=== PATIENT | female | born 1950 | race Hispanic/Latino ===

== ENCOUNTER → 2019-07-09 | Outpatient (CLI) | payer OTHER | END | disposition home or self-care (01) | LOC: SHCH 12:52 | PROVIDERS: ATTEND Internal Medicine Cardiovascular Disease | DX: I11.9 Hypertensive heart disease without heart failure (principal); R06.09 Other forms of dyspnea | CPT/HCPCS: 93306 ==

== ENCOUNTER → 2019-07-12 | Outpatient (CLI) | payer OTHER ==
[~2019-07-12] VITALS: Ht 160 cm; Wt 70.8 kg
[~2019-07-12] MED LIST: REGADENOSON 0.4 MG/5 ML PF SYG IVP SCH
== END | disposition home or self-care (01) ==
LOC: SHCH 07:44
PROVIDERS: ATTEND Internal Medicine Cardiovascular Disease
DX: I25.89 Other forms of chronic ischemic heart disease (principal); R06.09 Other forms of dyspnea
CPT/HCPCS: 78452; 93017; 96374; A9500 ×2

== ENCOUNTER 2019-10-15 05:57 | Day surgery (SDC) | payer OTHER ==
[2019-10-12 09:48] LABS: BASOPHILS % (AUTO) 0.4 % (0.0-5.0); EOSINOPHILS % (AUTO) 1.4 % (0.0-8.0); HEMATOCRIT 36.4 % (36-48); LYMPHOCYTES % (AUTO) 32.7 % (21.0-51.0); MEAN CORPUSCULAR HEMOGLOBIN 27.1 pg (27.0-33.0); MEAN CORPUSCULAR HGB CONC 31.9 g/dL (32.0-36.0); MONOCYTES % (AUTO) 6.8 % (3.0-13.0); NEUTROPHILS % (AUTO) 58.3 % (40.0-77.0); PLATELET COUNT (AUTO) 248 K/uL (130-400); RED BLOOD CELL COUNT(AUTO) 4.28 MIL/uL (4.00-5.50); RED CELL DISTRIBUTION WIDTH 14.3 % (11.0-15.5); WHITE BLOOD COUNT (AUTO) 4.9 K/uL (4.8-10.8)
[2019-10-12 09:54] LABS: CREATININE 1.3 mg/dL (0.5-1.5); POTASSIUM 4.4 mmol/L (3.5-5.1)
[2019-10-12 09:54] LABS: APPEARANCE,URINE Clear (CLEAR); BILIRUBIN,URINE Negative (NEGATIVE); COLOR,URINE Yellow (YELLOW); GLUCOSE, URINE (UA) Negative (NEGATIVE); KETONES,URINE Negative (NEGATIVE); LEUKOCYTE ESTERASE ,URINE Moderate (NEGATIVE); NITRATE,URINE Positive (NEGATIVE); OCCULT BLOOD,URINE Negative (NEGATIVE); PROTEIN,URINE POS 2+ mg/dL (NEGATIVE); UROBILINOGEN,URINE 0.2 mg/dL (0.2-1.0)
[2019-10-12 09:56] LABS: INR 1.02 (0.85-1.15); PROTHROMBIN TIME 10.7 SEC (9.6-11.6)
[2019-10-12 10:12] VITALS: BP 184/88
[2019-10-12 10:20] LABS: BACTERIA,URINE Many /HPF (None Seen); SQUAMOUS EPITHELIAL CELL,UR Rare /HPF (0-2)
--- NOTE | 2019-10-14 14:13 | NUR ---
CALLED TO REPORT URINE WITH POSITIVE NITRATES AND WBC 11-25, RBC 2-5 AND MODERATE LEUKEST, NEW ORDER TO ADM 1 GM OF ROCEPHIN IV DAY OF PROCEDURE.
[2019-10-15] VITALS (11 sets, daily range): BP systolic 140–160; BP diastolic 48–73
[~2019-10-15] VITALS: Ht 160 cm; Wt 69.1 kg
[~2019-10-15 05:57] MED LIST changes: +AMLO10TA7 PO; +FURO20TA4 PO; +GLIP10TA9 PO; +ISOS30TA6 PO; +LEVO50TA11 PO; +LOSA50TA64 PO; +METF-446 PO; +METO100T14 PO; +PIOG45TA64 PO; +PRAV20TA4 PO; -REGADENOSON 0.4 MG/5 ML PF SYG IVP SCH; +SODIUM CHLORIDE 0.9% 500ML 500 ML IV SCH; +VITAMIN D2 PO
[2019-10-15] MEDS ORDERED: CEFTRIAXONE SODIUM 1 GM IV SCH (06:00)
[2019-10-15] MEDS ORDERED: SODIUM CHLORIDE 0.9% 1000ML 1,000 ML IV ONE (06:11)
--- NOTE | 2019-10-15 06:20 | NUR ---
PRE OP PT ARRIVED AMBULATORY WITH DAUGHTER AT SIDE. PT HERE FOR [facility] IN NO DISTRESS. PT MADE COMFORTABLE IN BED. CALL LIGHT WITH IN REACH, BED IN LOWEST POSITION AND RAILS UP X2. PT CONNECTED TO LANDCARE OFFICER. PT INSTRUCTED TO CALL FOR ASSISTANCE AND VOICED UNDERSTANDING
[2019-10-15] MEDS ORDERED: IOHEXOL-350 75 ML VIAL IV ONE (07:15)
[2019-10-15] MEDS ORDERED: IOHEXOL 350 MG/ML 100ML INFUS..BTL IV ONE (07:15)
[2019-10-15] MEDS ORDERED: BIVALIRUDIN 250 MG/VIAL IV ONE (07:15)
[2019-10-15] MEDS ORDERED: NITROGLYCERIN 2 MG/VIAL VIAL IV ONE (07:15)
[2019-10-15] MEDS ORDERED: MIDAZOLAM HCL 1 MG/ML 2ML VIAL ONE (07:16)
[2019-10-15] MEDS ORDERED: LIDOCAINE HCL 2% 20ML ONE (07:16)
[2019-10-15] MEDS ORDERED: FENTANYL CITRATE PF 50 MCG/1 ML 2ML VIAL ONE (07:16)
--- NOTE | 2019-10-15 07:18 | NUR ---
SLAG PRODUCTION WORKER PT TAKEN TO SLAG PRODUCTION WORKER BY SLAG PRODUCTION WORKER NURSE VIA BED. PT IN NO DISTRESS.
[2019-10-15] MEDS ORDERED: SODIUM CHLORIDE 0.9% 1000ML 1,000 ML IV SCH (08:24)
[2019-10-15] MEDS ORDERED: ASPIRIN 81MG TAB.CHEW ONE (08:25)
[2019-10-15] MEDS ORDERED: TICAGRELOR 90 MG TABLET ONE (08:25)
[2019-10-15] MEDS ORDERED: GLUCAGON 1MG KIT 1 MG ML IM PRN (08:30)
[2019-10-15] MEDS ORDERED: NITROGLYCERIN 0.4 MG SL TAB SL PRN (08:30)
[2019-10-15] MEDS ORDERED: METOPROLOL TARTRATE 1 MG/ML 5ML VIAL IV PRN (08:30)
[2019-10-15] MEDS ORDERED: ACETAMINOPHEN-CODEINE 300/30MG TAB PO PRN (08:30)
[2019-10-15] MEDS ORDERED: DEXTROSE 50%-WATER 50 ML DISP.SYRIN IV PRN (08:30)
--- NOTE | 2019-10-15 08:35 | NUR ---
REPORT RECEIVED CALL FROM MANUEL MART RN. [facility] DONE AND STENT PLACED BUT PT OK TO GO HOME.
--- NOTE | 2019-10-15 08:50 | NUR ---
ROUNDS DR MURPHY IN TO SEE PT AND FAMILY. PT AND FAMILY INFORMED ON PLAN PER . PT WILL BE STARTING TWO NEW MEDS AND F/U AT OFFICE. PT AND FAMILY VOICED UNDERSTANDING
--- NOTE | 2019-10-15 08:55 | NUR ---
POST CATH RECEIVED PT BACK FROM PHYSICIAN CREDENTIALING SPECIALIST. MANUEL MART RN ENDORSED REPORT. RT GROIN WITH MYNX DEVICE FREE FROM S/S OF BLEEDING. DAUGHTER AT BEDSIDE. PT INSTRUCTED TO CALL IF ANY BLEEDING OR CHANGE IN CONDITION. PT VOICED UNDERSTANDING
--- NOTE | 2019-10-15 10:15 | NUR ---
ACTIVITY PT HOB RAISED. NO S/S OF BLEEDING NOTED TO RT GROIN. WILL CONT TO MONITOR PT. DIET SERVED.
--- NOTE | 2019-10-15 10:25 | NUR ---
insulin adm pts bs 210mg/dl. adm regular insulin 3 units to left outer arm. pt tolerated it well
[2019-10-15] MEDS ORDERED: INSULIN HUMULIN R 100 UNIT/ML 3ML SQ SCH (11:30)
--- NOTE | 2019-10-15 11:35 | NUR ---
ASSESSMENT PT READING A BOOK IN NO DISTRESS. NO CHANGE IN PATIENT STATUS.
--- NOTE | 2019-10-15 15:35 | NUR ---
report called michelle yip for dr bueno to verify frequency for aspirin. as per michelle instruct pt to take daily. report given to yonatan gandhi on pt care and medication change.
--- NOTE | 2019-10-15 15:40 | NUR ---
PHARMACY CALLED [facility] AT [phone]. CALLED IN PRESCRIPTION FOR ASPIRIN 81 MG DAILY #90 AND BRILINTA 90MG I TAB PO TWICE A DAY #180. PT AND PTS DAUGHTER VERBALIZED UNDERSTANDING. WILL SHOWER ENCLOSURE INSTALLER PRESCRIPTION.
== END 2019-10-15 16:10 | disposition home or self-care (01) ==
LOC: DAH 05:57
PROVIDERS: ATTEND Internal Medicine Cardiovascular Disease
DX: I25.119 Atherosclerotic heart disease of native coronary artery with unspecified angina pectoris (principal); I10 Essential (primary) hypertension; E78.5 Hyperlipidemia, unspecified; E11.9 Type 2 diabetes mellitus without complications; I45.10 Unspecified right bundle-branch block; Z90.49 Acquired absence of other specified parts of digestive tract; Z98.890 Other specified postprocedural states; Z79.01 Long term (current) use of anticoagulants; Z79.84 Long term (current) use of oral hypoglycemic drugs; Z79.899 Other long term (current) drug therapy
CPT/HCPCS: 36415; 71045; 80048; 81001; 82948 ×2; 85025; 85610; 85730; 87077; 87088; 87186; 93005; 93458; A4215; A4216; A4221; A4222; A4223 ×3; A4606; A4663; C1760; C1769; C1874; C1887; C1894 ×2; C9600; J0583; J0696; J1644; J1815; J2250; J3010; J3490 ×2; J7030; Q9965; Q9967 ×2; 99156; 99157

== ENCOUNTER → 2020-10-13 | Outpatient (CLI) | payer OTHER ==
[~2020-10-13] MED LIST changes: +AMLO-258 PO; -AMLO10TA7 PO; -ISOS30TA6 PO; +ISOS30TA92 PO; -SODIUM CHLORIDE 0.9% 500ML 500 ML IV SCH
== END | disposition home or self-care (01) ==
LOC: SHCH 13:31
PROVIDERS: ATTEND Internal Medicine Cardiovascular Disease
DX: I87.2 Venous insufficiency (chronic) (peripheral) (principal)
CPT/HCPCS: 93970

== ENCOUNTER → 2023-02-21 | Outpatient (CLI) | payer OTHER ==
[~2023-02-21] MED LIST changes: +REGADENOSON 0.4 MG/5 ML PF SYG IVP ONE
== END | disposition home or self-care (01) ==
LOC: SHCH 08:14
PROVIDERS: ATTEND Internal Medicine Cardiovascular Disease
DX: I20.9 Angina pectoris, unspecified (principal); I45.10 Unspecified right bundle-branch block
CPT/HCPCS: 78452; 96374; 93017; J2785; A9500 ×2

== ENCOUNTER 2025-06-17 01:30 | Observation (INO) | payer OTHER ==
[~2025-06-17] VITALS: Ht 154.9 cm; Wt 59.2 kg
[~2025-06-17 01:30] MED LIST changes: +GLIP10TA16 PO; -GLIP10TA9 PO; -PRAV20TA4 PO; +PRAV20TA59 PO; -REGADENOSON 0.4 MG/5 ML PF SYG IVP ONE
--- NOTE | 2025-06-17 01:40 | ERN ---
ED Note History of Present Illness Stated Complaint: LEFT SIDED NUMBNESS, CP Chief Complaint: Multiple Complaints Time Seen by MD: 01:39 Dictation: 75-year-old female with a history of hypertension diabetes coming in with complaints waking up at 11:00 p.m. with the tingling sensation to the left side of the body. Also states woke up with left-sided chest pressure. Denies any weakness, slurred speech, dysphagia. Allergies: Coded Allergies: No Known Drug Allergies (Verified Allergy, Unknown, 10/12/19) Home Meds Reported Medications Pravastatin Sodium (Pravastatin Sodium) 20 Mg Tablet, 20 MG PO HS, TAB 10/12/19 Pioglitazone HCl (Pioglitazone HCl) 45 Mg Tablet, 45 MG PO DAILY, TAB 10/12/19 [Vitamin D2] No Conflict Check, 14319 PO QWEEK 10/12/19 Metformin HCl (Metformin HCl) 1,000 Mg Tablet, 1000 MG PO BID, TAB 10/12/19 Glipizide (Glipizide) 10 Mg Tablet, 20 MG PO BID, TAB 10/12/19 Furosemide (Furosemide) 20 Mg Tablet, 20 MG PO DAILY, TAB 10/12/19 Isosorbide Mononitrate (Isosorbide Mononitrate ER) 30 Mg Tab.er.24h, 30 MG PO DAILY, TAB 10/12/19 Amlodipine Besylate (Amlodipine Besylate) 10 Mg Tablet, 10 MG PO DAILY, TAB 10/12/19 Losartan Potassium (Losartan Potassium) 50 Mg Tablet, 50 MG PO BIDAC, TAB 10/12/19 Metoprolol Tartrate (Metoprolol Tartrate) 100 Mg Tablet, 100 MG PO BID, TAB 10/12/19 Levothyroxine Sodium (Levothyroxine Sodium) 50 Mcg Tablet, 50 MCG PO DAILY, TAB 10/12/19 Review of System Dictation Chest pain and arm numbness Initial Vital Sign VS Vital Signs Date Time Temp Pulse Resp B/P (MAP) Pulse Ox O2 Delivery O2 Flow Rate FiO2 06/17/25 01:31 97.5 71 18 210/61 98 Room Air 06/17/25 01:55 0 21 Physical Exam Dictation HEENT: PERRLA CVS: S1 S2 heard Lung: Clear B?L Abd: Soft, nontender, nondistended, active bowel sounds Extremity: B/L upper and lower extremity pulses along with sensation in upper and lower extremity intact Neuro: Cranial nerves intact, normal speech, 5/5 strength in upper and lower extremity, 2 + reflexes upper and lower extremity, NIH score 0 and GCS 15, no cerebellar sign Results (Laboratory/Radiology) Laboratory/Radiology Laboratory Tests Test 06/17/25 01:46 White Blood Count 6.4 K/uL (4.8-10.8) Red Blood Count 4.18 MIL/uL (4.00-5.50) Hemoglobin 11.5 g/dL (12.0-16.0) L Hematocrit 35.9 % (36-48) L Mean Corpuscular Volume 85.9 fL (79-99) Mean Corpuscular Hemoglobin 27.5 pg (27.0-33.0) Mean Corpuscular Hemoglobin Concent 32.0 g/dL (32.0-36.0) Red Cell Distribution Width 13.6 % (11.0-15.5) Platelet Count 238 K/uL (130-400) Mean Platelet Volume 10.3 fL (7.5-10.5) Immature Granulocyte % (Auto) 0.0 % (0-1) Neutrophils (%) (Auto) 34.6 % (40.0-77.0) L Lymphocytes (%) (Auto) 49.6 % (21.0-51.0) Monocytes (%) (Auto) 9.0 % (3.0-13.0) Eosinophils (%) (Auto) 6.3 % (0.0-8.0) Basophils (%) (Auto) 0.5 % (0.0-5.0) Neutrophils # (Auto) 2.2 K/uL (1.8-7.7) Lymphocytes # (Auto) 3.2 K/uL (1.0-4.8) Monocytes # (Auto) 0.6 K/uL (0.1-1.0) Eosinophils # (Auto) 0.40 K/uL (0.00-0.70) Basophils # (Auto) 0.03 K/uL (0.00-0.20) Absolute Immature Granulocyte (auto 0.00 K/uL (0-1) Nucleated Red Blood Cells 0.0 % (0.0-0.19) Sodium Level 141 mmol/L (136-145) Potassium Level 3.3 mmol/L (3.5-5.1) L Chloride Level 106 mmol/L (101-111) Carbon Dioxide Level 25 mmol/L (21-32) Blood Urea Nitrogen 23 mg/dL (7-18) H Creatinine 1.3 mg/dL (0.5-1.0) H Glomerular Filtration Rate Calc 42 mL/min (>90) Random Glucose 83 mg/dL (70-105) Total Calcium 9.1 mg/dL (8.5-10.1) Total Creatine Kinase 166 U/L (21-232) Troponin I High Sensitivity 18 ng/L (4-50) ED Course ED Course Orders Procedure Category Date Status Time Vital Signs Per CPOE 06/17/25 Transmitted Routine 01:34 Chest 1vw RAD 06/17/25 Resulted 01:34 12 Lead Ekg Tracing- EKG 06/17/25 Complete Technical 01:34 Oxygen By Nc/Pulse Ox CPOE 06/17/25 Transmitted 01:34 Maintain Iv CPOE 06/17/25 Transmitted 01:34 Iv Insertion CPOE 06/17/25 Transmitted 01:34 Cardiac Monitoring CPOE 06/17/25 Transmitted 01:34 Pulse Oximetry With CPOE 06/17/25 Transmitted Vs And Prn 01:34 Cbc With Differential LAB 06/17/25 Complete 01:34 Activity: Br W/Brp CPOE 06/17/25 Transmitted With Assist 01:34 Creatine Kinase, Total LAB 06/17/25 Complete 01:34 Troponin I High LAB 06/17/25 Complete Sensitivity 01:34 Urinalysis Profile LAB 06/17/25 Logged 01:34 Basic Metabolic Panel LAB 06/17/25 Complete 01:34 Ct Head/Brain W/O CT 06/17/25 Taken Contrast 01:38 Hydralazine 20mg Inj PHA 06/17/25 Complete (Apresoline 20mg In 02:00 Current Medications Medications (Trade) Dose Ordered Sig/Omar Route PRN Reason Start Time Stop Time Status Last Admin Dose Admin Hydralazine HCl (APRESOLine 20MG INJ) 10 mg ONCE ONCE IV 06/17/25 02:00 06/17/25 02:01 DC 06/17/25 02:02 Vital Signs Date Time Temp Pulse Resp B/P (MAP) Pulse Ox O2 Delivery O2 Flow Rate FiO2 06/17/25 02:21 67 18 174/57 100 Room Air* 0 21 10/31/25 02:02 80 202/69 31/25 01:55 97.5 80 16 100 Room Air* 0 21 06/17/25 01:31 97.5 71 18 210/61 98 Room Air Medical Decision Making MDM Pt will be admitted to hospitalist service for further management. Stroke Patient?: No Is Patient Candidate for t-PA?: No Did the Patient Receive t-PA?: No NIH STROKE SCALE: NIH STROKE SCALE Response (Comments) Value Level of Consciousness Alert 0 Ask patient month and their age Answers both correct 0 Command to open eyes, make fist and let go Obeys both correct 0 Best gaze (horizontal eye movement) Normal 0 Visual Field Testing No Visual Field Loss 0 Facial Paresis Normal / Symmetrical 0 Motor Function - Left Arm Normal 0 Motor Function - Right Arm Normal 0 Motor Function - Left Leg Normal 0 Motor Function - Right Leg Normal 0 Limb Ataxia No Ataxia 0 Sensory-pin prick to arms, legs, trunk and face Normal 0 Best Language (describe picture, name items and read) No Aphasia 0 Dysarthria (read several words) Normal Articulation 0 Extinction and Inattention Normal 0 Total 0 Neuro Comment: NIH scale 0 DX & DISP Disposition: Inpatient Departure Impression: Primary Impression: Hypertensive urgency Condition: Stable Referrals: RC CALI MD (PCP) SLIM HOSKINS CNP Jun 17, 2025 01:40 CURLY EDGAR MD Jun 17, 2025 02:57
--- NOTE | 2025-06-17 01:42 | EKG ---
[facility] Test Date: 2025-06-17 Test Time: 01:34:45 Pat Name: ANDREWS BECK Department: ED Room: 409 Gender: F Geographic Area Intelligence Officer: [id number] : 1950 Requested By: CURLY EDGAR Order Number: [id number] Reading MD: Kevon Norris Measurements Intervals [place] Rate: 67 P: 2 IA: 178 QRS: 68 QRSD: 147 T: 29 QT: 452 QTc: 478 Interpretive Statements Sinus rhythm Right bundle branch block Compared to ECG 10/12/2019 09:30:36 No significant changes Electronically Signed On 06-17-2025 12:22:36 CDT by Kevon Norris Please click the below link to view image of tracing.
--- NOTE | 2025-06-17 01:50 | NUR ---
patient at ct scan at this time.
[2025-06-17 01:53] LABS: IMMATURE GRANULOCYTE ABSOLUTE 0.00 K/uL (0-1); NUCLEATED RED BLOOD CELLS 0.0 % (0.0-0.19); PLATELET COUNT (AUTO) 238 K/uL (130-400); RED BLOOD CELL COUNT(AUTO) 4.18 MIL/uL (4.00-5.50); RED CELL DISTRIBUTION WIDTH 13.6 % (11.0-15.5); WHITE BLOOD COUNT (AUTO) 6.4 K/uL (4.8-10.8)
[2025-06-17 02:01] LABS: CREATININE 1.3 mg/dL (0.5-1.0); GLOMERULAR FILTR. RATE CALC 42.0 mL/min (>90); GLUCOSE,RANDOM 83.0 mg/dL (70-105); SODIUM SERUM 141.0 mmol/L (136-145); UREA NITROGEN, BLOOD 23.0 mg/dL (7-18)
[2025-06-17 02:06] LABS: CREATINE KINASE, TOTAL 166.0 U/L (21-232)
--- NOTE | 2025-06-17 02:33 | HMCIMG ---
EXAM: CR Chest, 1 view CLINICAL HISTORY: Chest pain. COMPARISON: None provided. FINDINGS: The lungs show no infiltrates or other acute findings. No pleural effusion or pneumothorax. The cardiomediastinal silhouette is within normal limits. No acute osseous abnormality. IMPRESSION: No acute cardiopulmonary process is evident. /[place]
--- NOTE | 2025-06-17 02:50 | HMCIMG ---
EXAM: Non-contrast CT examination of the Brain. CLINICAL HISTORY: Numbness. TECHNIQUE: Thin collimated axial CT images of the brain were obtained, with sagittal and coronal reformatted images also submitted. A CT scan was done according to ALARA (As low as reasonably achievable). CONTRAST USED: None. COMPARISON: None provided. FINDINGS: No acute intracranial abnormality is present. Mild small vessel chronic ischemic changes in the bilateral cerebral white matter. No acute cortical infarction, hemorrhage, mass, or mass effect. There is mild prominence of the ventricles, cisterns, and sulci. No hydrocephalus or abnormal extra-axial fluid collections. The posterior fossa is unremarkable. The skull base and calvarium are intact. The included portions of the paranasal sinuses and mastoid air cells are clear. IMPRESSION: No acute intracranial abnormality is present. Mild small vessel chronic ischemic changes in the bilateral cerebral white matter. Age-related cerebral atrophy. /[place]
[2025-06-17 03:11] LABS: APPEARANCE,URINE CLEAR (CLEAR); GLUCOSE, URINE (UA) 500 mg/dL (NEGATIVE); LEUKOCYTE ESTERASE ,URINE NEGATIVE Leu/uL (NEGATIVE); NITRATE,URINE NEGATIVE (NEGATIVE); OCCULT BLOOD,URINE NEGATIVE (NEGATIVE); SQUAMOUS EPITHELIAL CELL,UR RARE /HPF (0-2)
[2025-06-17] MEDS ORDERED: HYDROcodone/APAP 5/325 1 TAB TABLET PO PRN ×3 (04:00→13:30)
[2025-06-17] MEDS ORDERED: PoTASSium chl 10% ELIXIR 20MEQ 20 MEQ/15 ML UDCUP PO PRN (04:00)
[2025-06-17] MEDS ORDERED: ALBUTEROL 0.083% 2.5 MG/3 ML INH IH PRN (04:00)
[2025-06-17] MEDS: PoTASSium chloRIDE 20MEQ ER 20 MEQ ERTAB PO PRN (04:19)
[2025-06-17 04:45] VITALS: O2SAT 100
--- NOTE | 2025-06-17 05:20 | NUR ---
home meds asked baljit lin for patient's home meds. she will bring them today
[2025-06-17 08:07] VITALS: BP 157/56; PULSE 77; RESP 18; TEMP 97.8
[2025-06-17] MEDS: FAMOTIDINE 20MG TAB PO SCH (10:25)
[2025-06-17 11:32] VITALS: BP 145/62; PULSE 80; RESP 20; TEMP 98.1
--- NOTE | 2025-06-17 12:19 | HMCSR ---
APPROVED REPORT EXAM: Two-dimensional and M-mode echocardiogram with Doppler and color Doppler. INDICATION ICD: Chest Pressure 2D Dimensions RVDd3.7 cmLVEF(%)65.9 (>50%)LVED Vol(simp.)76.0 mL IVSd1.6 (0.7-1.1cm)FS(%)36 %LVES Vol(simp.)26.0 mL LVDd3.9 (3.8-5.6cm)LA (2D)4.1 (1.6-4.0cm)LVEF(%, simp.)66 % PWd1.4 (0.7-1.1cm)Ao Root(2D)3.0 (2.0-3.7cm)LA ESV INDEX (BP)39.72 mL/m2 IVSs1.7 cmLVOT diam1.9 (1.8-2.4cm) LVDs2.5 (2.5-4.0cm)IVC diam1.3 cm PWs1.7 cm Deformation Strain Apical 4-22.2 % Apical 2-25.1 % Apical 3-19.5 % Global Strain-22.3 % M-Mode Dimensions EPSS0.6 cm LA (MM)4.6 (1.6-4.0cm) Ao Root(MM)2.9 (2.0-3.7cm) Aortic Valve AoV Vmax1.7 m/Hina Peak GR12.2 mmHgLVOT Vmax1.2 m/s AoV VTI0.3 mAo Mean GR5.8 mmHgLVOT VTI0.29 m LORENZO (VMAX)1.97 cm2AVA (VTI) 2.5 cm2 Mitral Valve MV E Vmax92.8 cm/sDECEL Dptr987 ms MV A Jgdq008.0 cm/sP 1/2 T38 ms E/A ratio0.8MVA (PHT)5.8 cm2 TDI E/E' Dmldpb73.0E/E' Gtkipza60.3 Medial E' Peak V6.18 cm/sLateral E' Peak V6.07 cm/s Pulmonary Valve PV Vmax1.1 m/sPV Mean GR2.6 mmHg PV Peak GR4.8 mmHg Tricuspid Valve TR Vmax3.1 m/sRAP (EST) 3 tnXjRCEZ31.3 mmHg TR Peak GR38.3 mmHg Left Ventricle The left ventricle is normal size. GLS -22.0% Moderate to severe concentric left ventricular hypertro phy. LVEF is 65-70%. Stage II, diastolic dysfunction. Right Ventricle The right ventricle is normal size. The right ventricular systolic function is normal. Atria The left atrium size is normal. The right atrium size is normal. Aortic Valve Aortic valve is trileaflet and opens well. No aortic regurgitation is present. There is no aortic deana vular stenosis. 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 Mitral valve leaflets open well. There is trace of mitral va lve regurgitation noted. There is no mitral valve stenosis. Tricuspid Valve The tricuspid valve is normal in structure. There is mild tricuspid valve regurgitation noted. Pulmonic Valve The pulmonary valve is normal in structure. There is no pulmonic valvular regurgitation. Great Vessels The aortic root is normal in size. The IVC is normal in size and collapses >50% with inspiration. Pericardium Prominent anterior epicardial fat pad is present. Other Information Quality : Fair Conclusion Moderate to severe concentric left ventricular hypertrophy. LVEF is 65-70%. Stage II, diastolic dysfunction. GLS -22.0% There is trace of mitral valve regurgitation noted.
--- NOTE | 2025-06-17 12:21 | HP ---
[facility] HISTORY & PHYSICAL Date Patient Seen: Jun 17, 2025 Time of Visit: 12:21 Supervising Physician: Dr. Juan Daniel Lara Primary Care Physician: Dr. Rossana Mar Inpatient Consults: NA PROBLEM LIST: Left arm/leg tingling/numbness Hypertensive urgency on admission (210/61) Acute kidney injury Diabetes mellitus type 2 Hyperlipidemia Hypothyroidism HPI: 75-year old female with past medical history of DM type 2, HTN, hypothyroidism that presented to the ER due to left sided arm and leg tingling/numbness that lasted about 2 hours, started at 2300 and she arrived to the ER at 0100. States two weeks ago she had the same symptoms that lasted about an hour and then they resolved. On arrival to the ER, CT head showed mild small vessel chronic ischemic changes in the bilateral cerebral white matter. Blood pressure was noted to be at 210/61. Patient states that when she started with numbness, she checked her blood pressure and it was in the 150's. EKG shows SR 60's. Troponin 18. Upon assessment, patient is AAOX3. Currently on room air. Able to voice needs and follow commands. Denies anymore tingling or numbness. Will order MRI brain, MRA head/neck to evaluate for stroke. Echo ordered as well. Daughter at bedside. Patient admitted for further workup. Goals of care explained to patient and daughter. Plan: MRI brain, MRA/MRA neck/head Echo Aspirin and statin Resume home medications, permissive hypertension AM labs Fall precautions PAST MEDICAL HX: see above PAST SURGICAL HX: noncontributory SOCIAL HISTORY: No tobacco, ETOH, or illicit drug use Coded Allergies: No Known Drug Allergies (Verified Allergy, Unknown, 10/12/19) REVIEW OF SYSTEMS: 12 point ROS reviewed with patient. Pertinent positives mentioned above. Otherwise negative. PHYSICAL EXAM: GENERAL: alert, weak, awake oriented x 3 HEENT: EOMI, Sclera non icteric, moist mucosa NECK: Supple, no JVD, trachea midline LUNGS: Clear breath sounds bilaterally. No wheezes HEART: Regular rate and rhythm. Normal S1 and S2, without murmurs ABD: Abdomen soft, nontender. Bowel sounds present EXT: No clubbing cyanosis or edema NEURO: AAOX3, follows commands Vital Signs (last 8hr) Date Time Temp Pulse Resp B/P (MAP) Pulse Ox O2 Delivery O2 Flow Rate FiO2 06/17/25 11:32 98.1 80 20 145/62 98 Room Air 06/17/25 08:07 97.9 77 18 157/56 100 Room Air 06/17/25 04:45 100 Room Air* 0 21 LABS: Hematology Labs: Test 06/17/25 01:46 Range/Units White Blood Count 6.4 4.8-10.8 K/uL Red Blood Count 4.18 4.00-5.50 MIL/uL Hemoglobin 11.5 L 12.0-16.0 g/dL Hematocrit 35.9 L 36-48 % Mean Corpuscular Volume 85.9 79-99 fL Mean Corpuscular Hemoglobin 27.5 27.0-33.0 pg Mean Corpuscular Hemoglobin Concent 32.0 32.0-36.0 g/dL Red Cell Distribution Width 13.6 11.0-15.5 % Platelet Count 238 130-400 K/uL Mean Platelet Volume 10.3 7.5-10.5 fL Immature Granulocyte % (Auto) 0.0 0-1 % Neutrophils (%) (Auto) 34.6 L 40.0-77.0 % Lymphocytes (%) (Auto) 49.6 21.0-51.0 % Monocytes (%) (Auto) 9.0 3.0-13.0 % Eosinophils (%) (Auto) 6.3 0.0-8.0 % Basophils (%) (Auto) 0.5 0.0-5.0 % Neutrophils # (Auto) 2.2 1.8-7.7 K/uL Lymphocytes # (Auto) 3.2 1.0-4.8 K/uL Monocytes # (Auto) 0.6 0.1-1.0 K/uL Eosinophils # (Auto) 0.40 0.00-0.70 K/uL Basophils # (Auto) 0.03 0.00-0.20 K/uL Absolute Immature Granulocyte (auto 0.00 0-1 K/uL Nucleated Red Blood Cells 0.0 0.0-0.19 % Chemistry Labs: Test 06/17/25 10:39 06/17/25 08:48 06/17/25 01:46 Range/Units Whole Blood Glucose 206 #H 70-110 MG/DL Troponin I High Sensitivity 20 4-50 ng/L Sodium Level 141 136-145 mmol/L Potassium Level 3.3 L 3.5-5.1 mmol/L Chloride Level 106 101-111 mmol/L Carbon Dioxide Level 25 21-32 mmol/L Blood Urea Nitrogen 23 H 7-18 mg/dL Creatinine 1.3 H 0.5-1.0 mg/dL Glomerular Filtration Rate Calc 42 >90 mL/min Random Glucose 83 70-105 mg/dL Total Calcium 9.1 8.5-10.1 mg/dL Total Creatine Kinase 166 21-232 U/L DIAGNOSTICS / RADIOLOGY RESULTS: PROCEDURE: HEAD WO - CT HEAD/BRAIN W/O CONTRAST EXAM: Non-contrast CT examination of the Brain. CLINICAL HISTORY: Numbness. TECHNIQUE: Thin collimated axial CT images of the brain were obtained, with sagittal and coronal reformatted images also submitted. A CT scan was done according to ALARA (As low as reasonably achievable). CONTRAST USED: None. COMPARISON: None provided. FINDINGS: No acute intracranial abnormality is present. Mild small vessel chronic ischemic changes in the bilateral cerebral white matter. No acute cortical infarction, hemorrhage, mass, or mass effect. There is mild prominence of the ventricles, cisterns, and sulci. No hydrocephalus or abnormal extra-axial fluid collections. The posterior fossa is unremarkable. The skull base and calvarium are intact. The included portions of the paranasal sinuses and mastoid air cells are clear. IMPRESSION: No acute intracranial abnormality is present. Mild small vessel chronic ischemic changes in the bilateral cerebral white matter. Age-related cerebral atrophy. PLAN NEURO: Minimize central acting medications as possible. Maintain fall precautions, adequate lighting during the day Aspirin and statin PULMONARY: Supplemental 02 as needed. Maintain aspiration precautions at all times CARDIOVASCULAR: Follow hemodynamics. Vital signs per facility protocol GI & NUTRITION: Continue with nutritional support. Continue stool softeners and laxatives as needed. KIDNEYS & ELECTROLYTES: Strict monitoring of intake, output and overall fluid balance. Avoid nephrotoxic medications to the extent possible. Medications to be dosed according to renal function. Monitor electrolytes and replace as needed ENDOCRINE: Maintain blood glucose between 100-180 at all times. Hypoglycemia protocol in place INFECTIOUS DISEASE: Trend temperature, WBC and procalcitonin level Follow cultures, deescalate antibiotics as soon as possible. Panculture if new onset fever ONCOLOGY/HEMATOLOGY/COAGULATION: Monitor for s/s of bleeding Monitor hemoglobin, coagulation studies as needed SKIN: Pressure ulcer prevention per facility protocol Specialty mattress ORTHO/REHAB: Continue PT/OT Prophylaxis: Continue GI and DVT prophylaxis Code Status: Full Resuscitation Disposition: TBD SONNY HIGGINBOTHAM Jun 17, 2025 12:21
--- NOTE | 2025-06-17 13:34 | NUR ---
DCP:HOME Pt currently lives with her daughter Perla Thomas [phone]. Pt denies having any DME, home health, or provider services. Pt states that she is able to complete ALDs independently. PCP is Dr. Rossana Mar and uses [facility] for any RX needs. At [place] pt will want to go home and family can assist with transportation. Addendum: 06/17/25 at 1336 by THANH ESPARZA SS Amended: Links added.
[2025-06-17] MEDS: ASPIRIN 325MG EC TAB PO SCH (13:42)
[2025-06-17 16:00] VITALS: BP 143/56; PULSE 86; RESP 19; TEMP 97.9
--- NOTE | 2025-06-17 17:32 | HMCIMG ---
EXAM: MRA Neck without Intravenous Contrast. CLINICAL HISTORY: left side tingling TECHNIQUE: Magnetic resonance angiography images of the neck without intravenous contrast. Three-dimensional MIP reformations performed. Series acquired: 5 - 3D TOF 6 SLAB - TR: 18.0 - TE: 2.7 - ET: 1.0 - Thk: 3.0 500 - COL:3D TOF 6 SLAB - TR: 18.0 - TE: 2.7 - ET: 1.0 - Thk: 3.0 501 - PJN:3D TOF 6 SLAB - TR: 18.0 - TE: 2.7 - ET: 1.0 - Thk: 3.0 502 - ROT - TR: 18.0 - TE: 2.7 - ET: 1.0 - Thk: 3.0 504 - R ROT - TR: 18.0 - TE: 2.7 - ET: 1.0 - Thk: 3.0 505 - L ROT - TR: 18.0 - TE: 2.7 - ET: 1.0 - Thk: 3.0 CONTRAST: COMPARISON: None provided. FINDINGS: INTERNAL CAROTID ARTERIES: No significant stenosis based on NASCET criteria. COMMON CAROTID ARTERIES: No significant stenosis. No dissection. EXTERNAL CAROTID ARTERIES: No occlusion or dissection. VERTEBRAL ARTERIES: No significant stenosis. No dissection. BASILAR ARTERY: No significant stenosis. No dissection. SOFT TISSUES Unremarkable as visualized. IMPRESSION: 1. No acute findings. 2. No significant stenosis or dissection of the carotid, vertebral, or basilar arteries. /[place]
--- NOTE | 2025-06-17 17:33 | HMCIMG ---
EXAM: MRI BRAIN AND BRAINSTEM WITHOUT INTRAVENOUS CONTRAST Technique: Multiplanar magnetic resonance imaging of the brain and brainstem was performed, including T1-, T2-, and FLAIR-weighted sequences with diffusion-weighted imaging and corresponding ADC maps. Contrast: No intravenous contrast was administered. Clinical Information: Left-sided weakness. Findings: Brain parenchyma: Nonspecific foci of increased T2/FLAIR signal in the periventricular and deep subcortical white matter; no associated mass effect. No diffusion restriction to suggest acute infarction. No intracranial hemorrhage or mass. Extra-axial spaces: Normal in size and morphology for age; no extra-axial fluid collection. Ventricular system and basal cisterns: Ventricles are normal in size and configuration; basal cisterns are patent. Posterior fossa/brainstem: Brainstem and cerebellum are unremarkable; no cerebellopontine angle mass. Vascular system: Expected arterial and dural venous sinus flow voids are present. Orbits and paranasal sinuses: Orbits are unremarkable; paranasal sinuses are clear. Osseous structures: Calvarium and skull base show no acute abnormality. Impression:1. No acute intracranial abnormality is identified, including no diffusion restriction to suggest acute infarct, and no intracranial hemorrhage, mass effect, or hydrocephalus. 2. Scattered nonspecific T2/FLAIR white matter hyperintensities, most commonly seen with chronic small vessel ischemic change; correlate with vascular risk factors. /[place]
--- NOTE | 2025-06-17 17:33 | HMCIMG ---
EXAM: MR ANGIOGRAPHY HEAD WITHOUT INTRAVENOUS CONTRAST Technique: Three-dimensional [id number] magnetic resonance angiography of the [place] with multiplanar kccoehl-[id number] reconstructions. Contrast: No intravenous contrast was administered. Clinical Information: Left-sided tingling. Findings: Anterior circulation: Intracranial segments of the right and left internal carotid arteries are patent without significant stenosis; no aneurysm detected. Right and left middle cerebral arteries are patent without occlusion or significant stenosis; no aneurysm. Right and left anterior cerebral arteries are patent without occlusion or significant stenosis; no aneurysm. Posterior circulation: Right and left vertebral arteries are patent without significant stenosis; no aneurysm. Basilar artery is patent without significant stenosis; no aneurysm. Right and left posterior cerebral arteries are patent without occlusion or significant stenosis; no aneurysm. Impression: * Normal intracranial MR angiography???no significant stenosis, occlusion, or aneurysm identified in the major anterior or posterior circulation. /[place]
[2025-06-17 19:11] VITALS: PULSE 86; RESP 19; O2SAT 96
[2025-06-17 20:00] VITALS: BP 147/62; PULSE 69; RESP 17; TEMP 98.1; O2SAT 98
[2025-06-18 00:04] VITALS: BP 150/63; PULSE 80; RESP 17; TEMP 98
[2025-06-18 04:06] VITALS: BP 153/66; PULSE 76; RESP 17; TEMP 98
[2025-06-18 04:10] LABS: IMMATURE GRANULOCYTE ABSOLUTE 0.02 K/uL (0-1); NUCLEATED RED BLOOD CELLS 0.0 % (0.0-0.19); PLATELET COUNT (AUTO) 227 K/uL (130-400); RED BLOOD CELL COUNT(AUTO) 4.07 MIL/uL (4.00-5.50); RED CELL DISTRIBUTION WIDTH 14.0 % (11.0-15.5); WHITE BLOOD COUNT (AUTO) 6.3 K/uL (4.8-10.8)
[2025-06-18 04:34] LABS: ASPARTATE AMINOTRANSFERASE 18.0 U/L (10-37); CREATININE 1.3 mg/dL (0.5-1.0); GLOMERULAR FILTR. RATE CALC 42.0 mL/min (>90); GLUCOSE,RANDOM 58.0 mg/dL (70-105); PHOSPHORUS 3.6 mg/dL (2.5-4.9); SODIUM SERUM 141.0 mmol/L (136-145); TOTAL PROTEIN, SERUM 6.3 g/dL (6.0-8.3); UREA NITROGEN, BLOOD 18.0 mg/dL (7-18)
[2025-06-18 06:12] VITALS: PULSE 71; RESP 18; O2SAT 98
[2025-06-18 08:08] VITALS: BP 168/60; PULSE 78; RESP 18; TEMP 97.8
[2025-06-18] MEDS: amLODIPine 2.5 MG TAB PO SCH (10:45)
[2025-06-18 11:40] VITALS: BP 146/55; PULSE 75; RESP 20; TEMP 98.1
[2025-06-18] MEDS ORDERED: FOLI0.8T22 PO (14:05)
[2025-06-18] MEDS ORDERED: LOSA50TA64 PO (14:06)
[2025-06-18] MEDS ORDERED: METF-444 PO (14:07)
[2025-06-18] MEDS ORDERED: PIOG45TA64 PO (14:12)
[2025-06-18] MEDS ORDERED: VITA-348 PO (14:12)
[2025-06-18] MEDS ORDERED: EMPA25TA PO (14:12)
[2025-06-18] MEDS ORDERED: GLIP5TAB15 PO (14:12)
[2025-06-18] MEDS ORDERED: PRAV20TA59 PO (14:12)
[2025-06-18] MEDS ORDERED: LEVO50CA5 PO (14:12)
[2025-06-18] MEDS ORDERED: AMLO2.5T2 PO (15:15)
--- NOTE | 2025-06-18 15:16 | DS ---
[facility] DISCHARGE SUMMARY Date Patient Seen: Jun 18, 2025 Time of Visit: 15:16 Supervising Physician: Dr. Lino Grewal Primary Care Physician: Dr. Rossana Mar Inpatient Consults: NA PROBLEM LIST: Left arm/leg tingling/numbness, CVA ruled out, likely TIA, resolved Hypertensive urgency on admission (210/61), resolved CKD stage III Diabetes mellitus type 2 Hyperlipidemia Hypothyroidism HPI (per admitting provider) 75-year old female with past medical history of DM type 2, HTN, hypothyroidism that presented to the ER due to left sided arm and leg tingling/numbness that lasted about 2 hours, started at 2300 and she arrived to the ER at 0100. States two weeks ago she had the same symptoms that lasted about an hour and then they resolved. On arrival to the ER, CT head showed mild small vessel chronic ischemic changes in the bilateral cerebral white matter. Blood pressure was noted to be at 210/61. Patient states that when she started with numbness, she checked her blood pressure and it was in the 150's. EKG shows SR 60's. Troponin 18. Upon assessment, patient is AAOX3. Currently on room air. Able to voice needs and follow commands. Denies anymore tingling or numbness. Will order MRI brain, MRA head/neck to evaluate for stroke. Echo ordered as well. Daughter at bedside. Patient admitted for further workup. Goals of care explained to patient and daughter. HOSPITAL COURSE: Patient was admitted due to left sided arm and leg tingling and numbness that lasted about 2 hours, with similar symptoms two weeks ago. She was found to have blood pressure 210/61 on arrival to the ER, but patient states that at home when she started with symptoms, her blood pressure was 150's. All radiological workup negative for stroke. Patient likely had TIA Of note, patient had been taking aspirin but ran out a month ago and never bought anymore. Today, patient is AAOX3. Currently on room air. Able to voice needs and follow commands. Denies any neurological symptoms, chest pain, abdominal pain, nausea or vomiting. She was started on new anti-hypertensive amlodipine and blood pressure improved. Stable for discharge home. Advised to follow up with PCP and keep blood pressure log. Verbalized understanding. RX sent to pharmacy. New Medications: Aspirin (Aspirin) 81 Mg Tab.chew 81 MG PO DAILY, #30 TAB.CHEW Amlodipine Besylate (Norvasc 2.5MG Tab) 2.5 Mg Tablet 2.5 MG PO BID, #30 TAB Continued Medications: Empagliflozin (Jardiance) 25 Mg Tablet 1 TAB PO DAILY for 30 Days, #30 TAB 0 Refills Folic Acid/Vitamin B Comp W-C (Oma-Madie Tablet) 0.8 Mg Tablet 0.8 MG PO DAILY, TAB Glipizide (Glipizide) 5 Mg Tablet 1 TAB PO DAILY for 30 Days, #30 TAB 0 Refills Levothyroxine Sodium (Levothyroxine) 50 Mcg Capsule 1 CAP PO DAILY for 30 Days, #30 CAP 0 Refills Losartan Potassium (Losartan Potassium) 50 Mg Tablet 50 MG PO BID, TAB Metformin HCl (Metformin HCl) 500 Mg Tablet 1 TAB PO BID for 30 Days, #60 TAB 0 Refills Pioglitazone HCl (Pioglitazone HCl) 45 Mg Tablet 0.5 TAB PO DAILY for 30 Days, #30 TAB 0 Refills Pravastatin Sodium (Pravastatin Sodium) 20 Mg Tablet 1 TAB PO DAILY for 30 Days, #30 TAB 0 Refills Vitamin E Mixed (Vitamin E) 400 Unit Capsule 1 CAP PO BID for 30 Days, #60 CAP 0 Refills PHYSICAL EXAM: GENERAL: alert, weak, awake oriented x 3 HEENT: EOMI, Sclera non icteric, moist mucosa NECK: Supple, no JVD, trachea midline LUNGS: Clear breath sounds bilaterally. No wheezes HEART: Regular rate and rhythm. Normal S1 and S2, without murmurs ABD: Abdomen soft, nontender. Bowel sounds present EXT: No clubbing cyanosis or edema NEURO: AAOX3, follows commands FOLLOW-UP: Follow-up with PCP in 2-3 days RECOMMENDATIONS: See Discharge Instructions This case was seen and discussed with my supervising physician. More than 30 mi nutes spent on discharge process, including evaluation of the patient, discussion with nursing staff, medication reconciliation and follow-up appointments SONNY HIGGINBOTHAM Jun 18, 2025 15:16
[2025-06-18 16:24] VITALS: BP 134/56; PULSE 76; RESP 20; TEMP 98
[2025-06-19] MEDS ORDERED: ASPI-1197 PO (06:47)
== END 2025-06-18 17:45 | disposition home or self-care (01) ==
LOC: EDH 01:30 → INTOOBSV 03:45 → UNDOADMOB 03:45 → EDHIP 03:45 → 4BH 04:34 → EDHIP 06-18 09:00 → UNDODISOB 06-18 17:45
PROVIDERS: ADMIT Internal Medicine; ATTEND Internal Medicine
DX: I16.0 Hypertensive urgency (principal); I12.9 Hypertensive chronic kidney disease with stage 1 through stage 4 chronic kidney disease, or unspecified chronic kidney disease; E11.22 Type 2 diabetes mellitus with diabetic chronic kidney disease; R20.2 Paresthesia of skin; N18.30 Chronic kidney disease, stage 3 unspecified; N17.9 Acute kidney failure, unspecified; G51.0 Bell's palsy; G45.9 Transient cerebral ischemic attack, unspecified; R27.0 Ataxia, unspecified; E78.5 Hyperlipidemia, unspecified; E03.9 Hypothyroidism, unspecified; Z79.84 Long term (current) use of oral hypoglycemic drugs; Z79.82 Long term (current) use of aspirin; Z79.899 Other long term (current) drug therapy; Z98.890 Other specified postprocedural states
CPT/HCPCS: 70544; 96374; 99285; 82550; 84484 ×3; 80048; 85025 ×2; 82948 ×10; 81001; 36415 ×2; 71045; 70450; 93306; 93356; 70551; 70547; 93005; 83735; 84100; 80053; J1815; J0360; G0378 ×9